=== PATIENT | male | born 1940 | race Caucasian/White ===

== ENCOUNTER → 2016-04-16 | Outpatient (CLI) | payer OTHER ==
--- NOTE | 2016-04-16 15:18 | DX ---
Abdomen Single View. HISTORY: Hematuria. Flank pain. History of kidney stones. COMPARISON: August 2010. FINDINGS: Radiopaque material is seen in the bowel contents in the right colon obscuring visualizatio n for renal calculus. Possible renal calculus or something in bowel contents is seen overlying the ri ght medial 11th rib. 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 Air distended loops of small and large bowel throughout the abdomen. A few phleboliths ar e seen in the left pelvis stable in appearance. IMPRESSION: Possible right nephrolithiasis. Radiopaque material in bowel contents in the right abdome n obscuring visualization.
== END ==
LOC: BMCIMAGING 14:20
PROVIDERS: ATTEND Specialist
DX: R31.0 Gross hematuria (principal); R10.9 Unspecified abdominal pain; Z87.442 Personal history of urinary calculi

== ENCOUNTER → 2016-10-29 | Outpatient (CLI) | payer OTHER | LOC: BMCIMAGING 14:06 | PROVIDERS: ATTEND Physician Assistant | DX: M25.552 Pain in left hip (principal) ==

== ENCOUNTER → 2016-12-07 | Outpatient (CLI) | payer OTHER | LOC: BMCIMAGING 10:39 | PROVIDERS: ATTEND Physician Assistant | DX: M25.512 Pain in left shoulder (principal) ==